=== PATIENT | female | born 1985 | race African-American/Black ===

== ENCOUNTER 2024-02-03 11:02 | Outpatient (CLI) | payer BC, SELFPAY ==
[2024-02-03 13:57] LABS: Basophils Percent Auto 0.7 % (0.2-1.2); Eosinophils Absolute Auto 0.1 K/mm3 (0-0.3); Eosinophils Percent Auto 1.2 % (0-4.4); Hematocrit 40.6 % (37.0-47.0); Hemoglobin 13.3 g/dL (12.0-15.0); Immature Granulocyte Absolute 0.01 K/mm3 (0.00-0.031); Immature Granulocyte Percent A 0.2 % (0-0.5); Lymphocytes Absolute Auto 1.48 K/mm3 (0.9-3.2); Lymphocytes Percent Auto 36.9 % (18.3-44.2); Mean Corpuscular HGB Conc 32.8 g/dl (32-36); Mean Corpuscular Hemoglobin 31.8 pg (26-34); Mean Corpuscular Volume 97.1 fl (80-100); Mean Platelet Volume 10.1 fl (7.4-10.4); Monocytes Absolute Auto 0.2 K/mm3 (0.1-0.6); Neutrophils Absolute Auto 2.2 K/mm3 (1.3-6.7); Platelet Count Result 331 k/mm3 (150-375); Red Blood Count 4.18 M/mm3 (4.2-5.4); Red Cell Distribution Width 11.3 % (11.5-14.5)
[2024-02-03 14:20] LABS: Alanine Aminotransferase 12 U/L (6-35); Albumin Level 4.2 g/dL (3.5-5.1); Alkaline Phosphatase 65 U/L (38-126); Anion Gap 8 mmol/L (4-12); Aspartate Amino Transferase 34 U/L (14-36); Bilirubin,Total 1.8 mg/dL (0.2-1.3); Blood Urea Nitrogen 13 mg/dL (7-17); Carbon Dioxide 33 mmol/L (22-30); Chloride 97 mmol/L (98-107); Cholesterol 177 mg/dL (0-200); Estimated Glomerular Filt Rate > 60; Glucose 81 mg/dL (65-110); HDL Direct 51 mg/dL; Potassium 3.1 mmol/L (3.4-5.0); Sodium 138 mmol/L (137-145); Triglycerides 62 mg/dL (<150)
[2024-02-03 14:33] LABS: LDL Cholesterol Direct 89 mg/dL
[2024-02-03 14:48] LABS: Thyroid Stimulating Hormone 0.392 uIU/mL (0.465-4.680)
[2024-02-03 14:52] LABS: HIV 1/2 Ab P24 Ag Result Negative (Negative)
[2024-02-03 15:32] LABS: Hepatitis B Surface Antigen Negative (Negative)
[2024-02-03 15:38] LABS: HAV RESULT Negative (Negative); Hepatitis B Core IgM Result Negative (Negative)
[2024-02-03 15:50] LABS: Hepatitis C Virus Antibody Negative (Negative)
[2024-02-03 23:11] LABS: Rapid Plasma Reagin Non-Reactive (NonReactive)
[2024-02-08 09:29] LABS: Vitamin D 1,25 (OH)2 Total 27 pg/mL (18-72); Vitamin D2 1,25 (OH)2 <8 pg/mL; Vitamin D3 1,25 (OH)2 27 pg/mL
== END 2024-02-03 11:03 | disposition home or self-care (01) ==
PROVIDERS: PCP Nurse Practitioner Family; Visit Provider Nurse Practitioner Family
DX: E55.9 Vitamin D deficiency, unspecified (principal); I10 Essential (primary) hypertension; Z00.00 Encounter for general adult medical examination without abnormal findings; E53.8 Deficiency of other specified B group vitamins; Z11.3 Encounter for screening for infections with a predominantly sexual mode of transmission
CPT/HCPCS: 36415; 80053; 80061; 80074; 82607; 82652; 84443; 85025; 86592; 86703; G0432